=== PATIENT | male | born 1975 | race Hispanic/Latino ===

== ENCOUNTER 2020-02-19 14:23 | Outpatient (CLI) | payer OTHER ==
--- NOTE | 2020-02-19 14:41 | RAD ---
XR Chest Pa Lat STANDARD HISTORY: Covid 19 pneumonia COMPARISON: 02/11/2020 FINDINGS: The heart size normal. There are mild patchy multifocal opacities in the lung grigsby bilate rally. No pneumothoraces or pleural effusions are seen. IMPRESSION: Findings are consistent with Covid 19 pneumonia.
== END 2020-02-19 14:24 | disposition home or self-care (01) ==
LOC: BICRAD 14:23
PROVIDERS: ATTEND Family Medicine
DX: U07.1 COVID-19 (principal); J12.82 Pneumonia due to coronavirus disease 2019
CPT/HCPCS: 71046

== ENCOUNTER 2020-03-15 09:11 | Outpatient (CLI) | payer OTHER ==
--- NOTE | 2020-03-15 10:21 | RAD ---
CHEST 2 VIEWS: HISTORY: Followup COVID-19 pneumonia. COMPARISON: 02/19/2020. FINDINGS: Considerable improvement in the previously noted patchy interstitial and alveolar opacity changes. T here are some very minimal persistent increased markings bilaterally. No significant new process. N o pleural effusion. Heart size remains normal. IMPRESSION: Marked improvement/clearing in the previously noted patchy bilateral pneumonia. POS: RRE
== END 2020-03-15 09:12 | disposition home or self-care (01) ==
LOC: BICRAD 09:11
PROVIDERS: ATTEND Family Medicine
DX: U07.1 COVID-19 (principal); J12.82 Pneumonia due to coronavirus disease 2019
CPT/HCPCS: 71046